=== PATIENT | male | born 1955 | race Caucasian/White ===

== ENCOUNTER → 2017-04-29 15:40 | Outpatient (CLI) | payer BC | END | disposition home or self-care (01) | LOC: D.CT 09:00 | DX: R91.1 Solitary pulmonary nodule (principal) ==

== ENCOUNTER → 2018-09-09 07:26 | Outpatient (CLI) | payer BC | END | disposition home or self-care (01) | LOC: D.US 07:26 | DX: G45.9 Transient cerebral ischemic attack, unspecified (principal) ==